=== PATIENT | female | born 1985 | race Caucasian/White ===

== ENCOUNTER → 2017-02-26 | Outpatient (CLI) | payer OTHER ==
--- NOTE | 2017-02-26 16:40 | WWHP ---
DATE OF SERVICE: 02/26/2017. CHIEF COMPLAINT: Patient is here for her routine gynecologic exam. HPI: This is a 31-year-old, G2, P1 with an LMP of 02/24/2017. The patient was previously on oral contraception up until about one month ago when her prescription ran out. Her last Pap smear was 3 years ago. She is without gynecologic complaints. She would like to restart control pills. PAST MEDICAL HISTORY: Unremarkable. MEDICATIONS: None. She was on Ortho Tri-Cyclen generic up until one month ago. ALLERGIES: No known drug allergies. PAST SURGICAL HISTORY: Unremarkable. Past OB history: One vaginal delivery and she delivered in [place]. 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 SOCIAL HISTORY: She denies tobacco and drug use and has 5 to 10 alcoholic drinks per week. 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 Her is in the . FAMILY HISTORY: Mother has breast cancer, both parents have depression. REVIEW OF SYSTEMS: Weight has been stable. She denies respiratory, cardiac, or GI problems. PHYSICAL EXAM: Blood pressure 119/77. Height 5 feet 9 inches. Weight 205 pounds. Temperature 96.4, pulse 70. This is a well-developed, well-nourished white female who is alert and oriented x3 in no acute distress. HEENT is within normal limits. NECK: Supple without mass or thyromegaly. CHEST AND LUNGS: Clear to auscultation. HEART: Regular rate and rhythm. Breasts are without mass or discharge. Axillary exam is negative for adenopathy. BACK: Negative for CVA tenderness. ABDOMEN: Soft, nontender, without palpable masses. PELVIC EXAM: Normal external genitalia. Cervix and vagina reveal a small amount of menstrual blood in the back of vagina. Cervix appears normal. There is no cervical motion tenderness. The uterus is midposition, nongravid size and nontender. No palpable adnexal masses or tenderness. Rectal exam is negative for mass or tenderness. EXTREMITIES: Nontender. IMPRESSION: A 31-year-old gynecologically healthy female requesting to be restarted on oral contraception. PLAN: 1. Pap smear was performed. 2. Self-breast examination was discussed. 3. Prescription for Ortho Tri-Cyclen was given to the patient for the upcoming year. She will start this on Friday. I have recommended that she use an alternate method such as condoms through the first pack. 4. She will return in one year.
== END | disposition home or self-care (01) ==
LOC: WWCWWP 08:37
PROVIDERS: ATTEND Obstetrics & Gynecology

== ENCOUNTER → 2017-07-22 | Outpatient (CLI) | payer OTHER ==
--- NOTE | 2017-07-22 15:04 | US ---
EXAMINATION TYPE: US OB <= 14 wk fetus DATE OF EXAM: 07/22/2017 COMPARISON: NONE CLINICAL HISTORY: Z36 Confirm date;. EXAM PERFORMED: Transabdominal (TA) EXAM MEASUREMENTS: GESTATIONAL AGE / DATING Physician Established: not established Dates by LMP: (13 weeks/0 days) EDC: 01/27/2018 First Scan: today Dates by Current Scan for: (13 weeks/6 days) EDC: 01/21/2018 MATERNAL ANATOMY Uterus: 16.1 x 11.0 x 6.9cm Right Ovary: 2.7 x 3.2 x 2.0cm Left Ovary: 2.5 x 2.5 x 1.5cm Post CDS / Adnexa: wnl Presence of free fluid: no Presence of corpus luteal cyst: in right ovary = 2.1 x 1.4 x 1.7cm Presence of subchorionic bleed: no GESTATION / SURVEY CRL: 7.8cm (13 weeks/6 days) Yolk Sac (normal less than 6mm): not seen Heart Rate: 144 bpm Rhythm: Normal IUP: Viable IUP Nuchal Translucency 10-14wks (normal less than 3mm): 1.2mm Date of LMP: 04/22/2017 Beta HcG (if available): NA Survey is limited. IMPRESSION: Single viable intrauterine corresponding to ultrasound age 13 weeks 6 days with estimated d ate of delivery 01/21/2018.
== END ==
LOC: RADUSWWP 14:22
PROVIDERS: ATTEND Obstetrics & Gynecology
DX: Z36 Encounter for antenatal screening of mother (principal); Z3A.13 13 weeks gestation of pregnancy
CPT/HCPCS: 76801; 76813

== ENCOUNTER → 2017-09-05 | Outpatient (CLI) | payer OTHER ==
--- NOTE | 2017-09-05 14:54 | US ---
EXAMINATION TYPE: US OB anatomy transabd DATE OF EXAM: 09/05/2017 COMPARISON: 07/22/2017 HISTORY: O36.62X0 LARGE FOR DATES 2ND TRIMESTER anatomy TECHNIQUE: OBTA EXAM MEASUREMENTS: GESTATIONAL AGE / DATING Physician Established: (20 weeks/2 days) EDC: 01/20/2018 Dates by LMP: (21 weeks/2 days) EDC: 01/27/2018 Dates by First Scan: (20 weeks/3 days) EDC: 01/21/2018 Dates by Current Scan for: (20 weeks/3 days) EDC: 01/21/2018 SURVEY IUP: Single PLACENTA: Anterior PREVIA: No previa ETHAN: 14.5 cm Normal CERVICAL LENGTH (transabdominal: norm > 3.0cm): 3.4 cm BIOMETRY PRESENTATION: Variable LIE: Longitudinal BPD: 4.5 cm 19 weeks / 5 days HC: 17.7 cm 20 weeks / 2 days AC: 16.0 cm 21 weeks / 1 days FL: 3.2 cm 20 weeks / 0 days ESTIMATED WEIGHT IN GRAMS: 358 grams ESTIMATED WEIGHT IN LBS/OZ: 0 lbs. 13 oz. WEIGHT PERCENTAGE BASED ON ESTABLISHED DATE: 50 % HC/AC: 1.1 Normal FL/AC: 20 Normal HEART RATE: 133 bpm RHYTHM: Normal ANATOMY SEEN (within normal limits): * Lateral Vent (< 1 cm) 0.4 cm * Cisterna Magna (< 1.1 cm) 0.3 cm * Nuchal Fold (< 0.6 cm) 0.2 cm * Cerebellum (varies with age) 1.9 cm Choroid Plexus (bilateral) Midline Falx Cavus Septi Pellucidi Four Chamber Heart Outflow tracts: LVOT/RVOT Stomach Situs Nose / Lips Diaphragm Kidneys (bilateral) Bladder Cord Insert Three Vessel Cord Arms (bilateral) Legs (bilateral) ANATOMY NOT SEEN:LP was 2nd tech to assess that spine was still down, patient is making follow up a ppt within 2 weeks to obtain images. Longitudinal Spine Transverse Spine IMPRESSION: Viable of 20 weeks 3 days with a heart rate 33 bpm EDC of 01/21/2018.
--- NOTE | 2017-09-17 16:04 | US ---
EXAMINATION TYPE: US OB Call Back DATE OF EXAM: 09/17/2017 COMPARISON: US September 05, 2017 CLINICAL HISTORY: OB CALL BACK. GESTATIONAL AGE / DATING Dates by Initial Survey Scan: (22 weeks/1 days) EDC: 04/15/2017 HEART RATE: 136 bpm RHYTHM: Normal ANATOMY SEEN (second anatomic survey look): Longitudinal Spine: wnl Transverse Spine: wnl spine seen wnl Second look ultrasound shows 2 views of the spine to appear within normal limits during real-time sca nning and on still images saved. Single live intrauterine gestation is redemonstrated. IMPRESSION: As above
== END | disposition home or self-care (01) ==
LOC: RADUSWWP 13:24
PROVIDERS: ATTEND Obstetrics & Gynecology
DX: O36.62X0 Maternal care for excessive fetal growth, second trimester, not applicable or unspecified (principal); Z3A.20 20 weeks gestation of pregnancy
CPT/HCPCS: 76811

== ENCOUNTER → 2017-12-05 | Outpatient (CLI) | payer OTHER ==
--- NOTE | 2017-12-05 10:52 | US ---
EXAMINATION TYPE: US OB anatomy transabd DATE OF EXAM: 12/05/2017 COMPARISON: US 2017 HISTORY: O36.63XO Large for dates Large for dates, 2, para 1 TECHNIQUE: Transabdominal (TA) EXAM MEASUREMENTS: GESTATIONAL AGE / DATING Physician Established: (33 weeks/3 days) EDC: 01/20/2018 Dates by LMP: (32 weeks/3 days) EDC: 01/27/2018 Dates by First Scan: (33 weeks/2 days) EDC: 01/21/2018 Dates by Current Scan for: (34 weeks/0 days) EDC: 01/16/2018 SURVEY IUP: Single PLACENTA: Anterior, multiple cystic areas with largest measuring 1.6cm, probable placental lakes PREVIA: No previa ETHAN: 12.0 cm Normal CERVICAL LENGTH (transabdominal: norm > 3.0cm): 3.6 cm BIOMETRY PRESENTATION: Vertex LIE: Longitudinal BPD: 8.4 cm 33 weeks / 6 days HC: 30.7 cm 34 weeks / 2 days AC: 29.6 cm 33 weeks / 5 days FL: 6.6 cm 34 weeks / 0 days ESTIMATED WEIGHT IN GRAMS: 2276 grams ESTIMATED WEIGHT IN LBS/OZ: 5 lbs. 0 oz. WEIGHT PERCENTAGE BASED ON ESTABLISHED DATE: 53 % HC/AC: 1.04 Normal FL/AC: 22% Normal HEART RATE: 142 bpm RHYTHM: Normal ANATOMY SEEN (within normal limits): Midline Falx Cavus Septi Pellucidi Four Chamber Heart Outflow tracts: LVOT/RVOT Stomach Situs Nose / Lips Diaphragm Kidneys (bilateral) Bladder Cord Insert Three Vessel Cord Arms (bilateral) Legs (bilateral) ANATOMY NOT SEEN: Due to advanced age and crowding * Lateral Vent (< 1 cm) cm * Cisterna Magna (< 1.1 cm) cm * Nuchal Fold (< 0.6 cm) cm * Cerebellum (varies with age) cm Choroid Plexus (bilateral) Longitudinal Spine Transverse Spine Viable single IUP measuring 34 weeks 0 days with a heart rate of 142bpm and an estimated delivery jeff e of 01/16/2018. survey is limited due to advanced age. IMPRESSION: Single viable intrauterine corresponding to ultrasound age dated 34 weeks 0 days with estim ated date of delivery 01/16/2018, limited survey
== END | disposition home or self-care (01) ==
LOC: RADUSWWP 09:44
PROVIDERS: ATTEND Obstetrics & Gynecology
DX: O36.63X0 Maternal care for excessive fetal growth, third trimester, not applicable or unspecified (principal); Z3A.34 34 weeks gestation of pregnancy
CPT/HCPCS: 76811

== ENCOUNTER → 2018-01-19 | Outpatient (CLI) | payer OTHER ==
--- NOTE | 2018-01-19 13:20 | US ---
EXAMINATION TYPE: US OB >= 14 wk fetus DATE OF EXAM: 01/19/2018 COMPARISON: US 12/05/2017 CLINICAL HISTORY: O36.63X0 LARGE FOR DATES TECHNIQUE: Transabdominal (TA) GESTATIONAL AGE / DATING Physician Established: (38 weeks/6 days) EDC: 01/27/2018 Dates by LMP: (38 weeks/6 days) EDC: 01/27/2018 Dates by First Scan: (39 weeks/ 5 days) EDC: 01/21/2018 Dates by Current Scan: (38 weeks/2 days) EDC: 01/31/2018 Beta HCG (if available): Not available at this time SURVEY IUP: Single PLACENTA: Anterior PREVIA: No Previa ETHAN: 10.9 cm Normal CERVICAL LENGTH (transabdominal: norm > 3.0cm): 4.6 cm BIOMETRY PRESENTATION: Vertex LIE: Longitudinal BPD: 9.4 cm 38 weeks / 2 days HC: 33.7 cm 38 weeks / 5 days AC: 34.64 cm 38 weeks / 4 days FL: 7.5 cm 38 weeks / 4 days ESTIMATED WEIGHT IN GRAMS: 3520 grams ESTIMATED WEIGHT IN LBS/OZ: 7 lbs. 12 oz. WEIGHT PERCENTAGE BASED ON ESTABLISHED DATES: 60.3% HC/AC: 0.97 Normal FL/AC: 21.78 Normal HEART RATE: 125 bpm RHYTHM: Normal Viable IUP with an TEQUILA of 01/31/2018 by this exam. Probable placental oliveira visualized measuring 1.0 x 0.7 x 1.6 cm Single live intrauterine gestation is redemonstrated. Normal cephalad presentation to fetus is presen t. There is no ultrasound evidence for placenta previa. Prominent oval anechoic area of the placenta likely reflect venous lakes. Amniotic fluid index is within normal limits. biometry measurement s are congruent. Estimated date of confinement is approximately 10 days greater then original first t robyn ultrasound IMPRESSION: As above
== END | disposition home or self-care (01) ==
LOC: RADUSWWP 11:02
PROVIDERS: ATTEND Obstetrics & Gynecology
DX: O36.63X0 Maternal care for excessive fetal growth, third trimester, not applicable or unspecified (principal); Z3A.38 38 weeks gestation of pregnancy
CPT/HCPCS: 76805

== ENCOUNTER 2018-01-21 06:00 | Inpatient (IN) | payer OTHER ==
[2018-01-22] MEDS ORDERED: LIDOCAINE 1% (PF) 10 MG/ML (30 ML SDV) SQ PRN (06:38)
[2018-01-22] MEDS ORDERED: CARBOPROST TROMETHAMINE 250 MCG/ML 1 ML AMP IM PRN (06:38)
[2018-01-22] MEDS ORDERED: OXYTOCIN 10 UNIT/ML 1 ML VIAL IM PRN (06:38)
[2018-01-22] MEDS ORDERED: AMPICILLIN 2,000 MG in SODIUM CHLORIDE 0.9% 100 ML IVPB STA (06:38)
[2018-01-22] MEDS ORDERED: TERBUTALINE 1 MG/ML VIAL SQ PRN (06:38)
[2018-01-22] MEDS ORDERED: METHYLERGONOVINE 0.2 MG/ML 1 ML AMP IM PRN (06:38)
[2018-01-22] MEDS ORDERED: OXYTOCIN 20 UNITS/1000 ML NS 1,000 ML IV SCH (06:45)
[2018-01-22 06:57] VITALS: BMI 32.1
[2018-01-22 06:57] LABS: Basophils % (A) 0 %; Eosinophils # (A) 0.2 k/uL (0-0.7); Eosinophils % (A) 2 %; HCT 38.7 % (34.0-46.0); HGB 13.5 gm/dL (11.4-16.0); Lymphocytes # (A) 2.3 k/uL (1.0-4.8); Lymphocytes % (A) 21 %; MCV 88.7 fL (80.0-100.0); Mean Platelet Volume 6.3; Monocytes # (A) 0.4 k/uL (0-1.0); Monocytes % (A) 3 %; Neutrophils # (A) 7.9 k/uL (1.3-7.7); Neutrophils % (A) 72 %; Platelet Count 297 k/uL (150-450); RBC 4.36 m/uL (3.80-5.40); RDW 13.6 % (11.5-15.5); WBC 10.9 k/uL (3.8-10.6)
[2018-01-22] MEDS: LACTATED RINGERS 1,000 ML IV SCH ×2 (06:58→12:43)
[2018-01-22] MEDS: AMPICILLIN 1,000 MG in SODIUM CHLORIDE 0.9% 50 ML IVPB SCH ×2 (11:32→15:50)
[2018-01-22] MEDS ORDERED: BUPIVACAINE (PF) 0.25% 30 ML VIAL ONE (12:52)
[2018-01-22] MEDS ORDERED: SODIUM CHLORIDE 0.9% 100 ML BAG ONE (12:52)
[2018-01-22] MEDS ORDERED: fentaNYL (PF) 50 MCG/ML 5 ML AMP ONE (12:52)
[2018-01-22] MEDS ORDERED: BUPIVACAINE (PF) 0.25% 25 ML, fentaNYL (PF) 200 MCG in SODIUM CHLORIDE 0.9% 71 ML EPIDURAL ONE (13:44)
[2018-01-22] MEDS ORDERED: ZOLPIDEM 5 MG TAB PO PRN (17:07)
[2018-01-22] MEDS ORDERED: LANOLIN CREAM 5 GM TUBE TOPICAL PRN (17:07)
[2018-01-22] MEDS ORDERED: diphenhydrAMINE 50 MG CAP PO PRN (17:07)
[2018-01-22] MEDS ORDERED: diphenhydrAMINE 25 MG CAP PO PRN (17:07)
[2018-01-22] MEDS ORDERED: ACETAMINOPHEN TAB 325 MG TAB PO PRN (17:07)
[2018-01-22] MEDS ORDERED: SIMETHICONE 80 MG CHEWABLE PO PRN (17:07)
[2018-01-22] MEDS ORDERED: diphenhydrAMINE 50 MG/ML 1 ML VIAL IVP PRN ×2 (17:07)
[2018-01-22] MEDS ORDERED: WITCH HAZEL 1 EACH MED..PAD TOPICAL PRN (17:07)
[2018-01-22] MEDS ORDERED: HYDROCORTISONE 2.5% RECTAL CREAM 30 GM TUBE RECTAL PRN (17:07)
[2018-01-22] MEDS ORDERED: BENZOCAINE/MENTHOL SPRAY 1 GM/SPRAY AEROSOL TOPICAL PRN (17:07)
--- NOTE | 2018-01-22 17:36 | P.HPOB ---
History of Present Illness H&P Date: 01/22/18 Chief Complaint: IUP term Is a 32-year-old at 39 weeks gestation arise for induction of labor. She has a history of macrosomia with her last with the baby weighing 10 lbs. 2 oz. with shoulder dystocia. Ultrasound on Friday revealed this baby only appears to weigh 7 lbs. 12 oz. rather than take any risks due to history of shoulder dystocia were moving forward with an induction. She is dilated 1/2 cm in 80% effaced with -3 station. Her course otherwise has been generally unremarkable and she is feeling well at this time. She is passed her 1 hour Glucola screens and all of her other lab work was also normal. Pertinent labs did include O+ blood type, Rh antibody was negative, rubella was immune, hepatitis B surface and was negative. GBS was however positive. On physical exam vital signs are stable and afebrile. Heart regular, lungs clear, extremities are without pain. Osteopathic exams unremarkable. Pelvic exam reveals review 1/2 cm dilated. She does have a history of HSV but no lesions are present and she voices no complaints of prodromal symptoms. She has been taking acyclovir. Assessment intrauterine at term. Plan expect spontaneous vaginal delivery and epidural for analgesia. Past Medical History Past Medical History: No Reported History History of Any Multi-Drug Resistant Organisms: None Reported Additional Past Surgical History / Comment(s): wisdom teeth removed Past Psychological History: No Psychological Hx Reported Smoking Status: Never smoker Past Alcohol Use History: None Reported Past Drug Use History: None Reported - Past Family History Mother Family Medical History: Cancer Additional Family Medical History / Comment(s): Breast cancer, depression Medications and Allergies Allergies Allergy/AdvReac Type Severity Reaction Status Date / Time No Known Allergies Allergy Verified 01/22/18 06:28 Exam Osteopathic Statement: *. No significant issues noted on an osteopathic structural exam other than those noted in the History and Physical/Consult. - Vital Signs Vital signs: Vital Signs Temp Pulse Resp BP Pulse Ox 01/22/18 17:04 93 14 132/72 01/22/18 16:49 97.9 F 102 H 18 136/60 01/22/18 06:47 97.4 F L 94 16 129/84 99 Intake and Output 01/22/18 01/22/18 01/22/18 06:59 14:59 22:59 Intake Total 2100 Output Total 500 Balance 2100 -500 Intake: IV 300 Ampicillin 1,000 mg In 300 Sodium Chloride 0.9% 50 ml @ 100 mls/hr IVPB Q4H EDUARDO Rx#:[id number] Intake, IV Titration 1800 Amount Lactated Ringers 1,000 ml 1800 @ 125 mls/hr IV .Q8H EDUARDO Rx#:[id number] Output: Urine 500 Other: Weight 98.883 kg Results Result Diagrams: 01/22/18 06:30 Abnormal Lab Results - Last 24 Hours (Table) 01/22/18 Range/Units 06:30 WBC 10.9 H (3.8-10.6) k/uL Neutrophils # 7.9 H (1.3-7.7) k/uL
--- NOTE | 2018-01-22 17:37 | P.PROBDLV ---
Vaginal Delivery Note - . Vaginal Delivery Note: Patient progressed to complete and pushing with spontaneous vaginal delivery of a viable female over a first-degree laceration. Following delivery of the head a nuchal cord 2 was noted attempt at reduction of nuchal cord was made but as she continued to push the cord get her we were able to deliver the baby through the nuchal cord and then unwrap the cord from around the baby. Once baby was delivered mouth nares were bulb suctioned and baby was placed on mother's abdomen where the umbilical cord was allowed to pulsate for 20 seconds prior to clamping and cutting. Once cord was clamped and cut placenta was delivered intact and Pitocin was added to the IV. scores are 9 and 9 at one and 5 minutes respectively and the weight was 7 lbs. 12 oz. Both mother and baby are stable findings delivery.
[2018-01-22] MEDS ORDERED: INFLUENZA VACCINE (6 MOS+) 60 MCG/0.5 ML SYRINGE IM ONE (19:46)
[2018-01-22] MEDS: SENNOSIDES-DOCUSATE SODIUM 1 EACH TAB PO SCH (19:51)
[2018-01-22] MEDS: IBUPROFEN 600 MG TAB PO PRN (23:11)
[2018-01-23 08:45] VITALS: PULSE 76; RESP 14
[2018-01-23] MEDS: IBUPROFEN 600 MG TAB PO PRN (08:51)
--- NOTE | 2018-01-23 08:58 | P.DS ---
Providers Date of admission: 01/22/18 06:14 Expected date of discharge: 01/23/18 Attending physician: Thomas Cole Primary care physician: Kristopher Meraz [facility] Course: Patient is doing very well day 1. She is involuting, voiding, and she is tolerating her diet. She voices no clots. Vital signs are stable and afebrile. Heart regular, lungs clear, extremities are without pain. Abdomen is soft uterus is firm lochia is reported to be light. She is stable for discharge this time and requests nothing for pain. Assessment day 1. Plan discharged home follow up with me in 6 weeks. Discharge instructions were thoroughly reviewed and all questions are answered for her to discharge. Patient Condition at Discharge: Good Plan - Discharge Summary Follow up Appointment(s)/Referral(s): Thomas Cole DO [Doctor of Osteopathic Medicine] - 6 Weeks Activity/Diet/Wound Care/Special Instructions: No heavy lifting, limit stairs and driving, and pelvic rest. If any high temperatures, heavy bleeding, or severe pain call my office Discharge Disposition: HOME SELF-CARE
[2018-01-23] MEDS: SENNOSIDES-DOCUSATE SODIUM 1 EACH TAB PO SCH (09:43)
[2018-01-23] MEDS ORDERED: DIPH,PERTUS(ACELL)TETVAC-LF 0.5 ML VIAL IM ONE (14:30)
[2018-01-23 17:12] VITALS: BP 123/72; TEMP 98.1
== END 2018-01-23 17:50 | disposition home or self-care (01) | DRG 775 ==
LOC: 4FBP 01-22 06:14
PROVIDERS: ADMIT Obstetrics & Gynecology; ATTEND Obstetrics & Gynecology
PROC: 10E0XZZ Delivery of Products of Conception, External Approach (ICD-10-PCS; principal; 2018-01-22)
PROC: 0HQ9XZZ Repair Perineum Skin, External Approach (ICD-10-PCS; 2018-01-22)
PROC: 3E033VJ Introduction of Other Hormone into Peripheral Vein, Percutaneous Approach (ICD-10-PCS; 2018-01-22)
PROC: 3E0234Z Introduction of Serum, Toxoid and Vaccine into Muscle, Percutaneous Approach (ICD-10-PCS; 2018-01-22)
PROC: 3E0234Z Introduction of Serum, Toxoid and Vaccine into Muscle, Percutaneous Approach (ICD-10-PCS; 2018-01-23)
DX: O69.81X0 Labor and delivery complicated by cord around neck, without compression, not applicable or unspecified (principal); O70.0 First degree perineal laceration during delivery; O99.824 Streptococcus B carrier state complicating childbirth; Z37.0 Single live birth; Z3A.39 39 weeks gestation of pregnancy; Z80.3 Family history of malignant neoplasm of breast; Z81.8 Family history of other mental and behavioral disorders
CPT/HCPCS: 85025; 88307; 90471; 90686; 90715